=== PATIENT | female | born 1990 | race Caucasian/White ===

== ENCOUNTER 2020-02-01 06:04 | Inpatient (IN) | payer OTHER ==
[2020-02-01] MEDS ORDERED: PENICILLIN 5 MU in NA CHLORIDE 0.9% 100 ML IV ONE (06:56)
[2020-02-01] MEDS ORDERED: METHYLERGONOVINE 0.2MG/ML AMP IM PRN ×2 (06:58→12:48)
[2020-02-01] MEDS ORDERED: CARBOPROST TROME 250 MCG/ML IM PRN ×2 (06:58→12:48)
[2020-02-01] MEDS ORDERED: Ringers Lactate 1,000 ML IV PRN (06:58)
[2020-02-01] MEDS ORDERED: Ringers Lactate 1,000 ML IV SCH (07:00)
[2020-02-01] MEDS ORDERED: OXYTOCIN/LR 20 UNIT/1,000 ML BAG IV SCH ×2 (07:00→13:00)
[2020-02-01] MEDS ORDERED: LIDOCAINE 1% MPF 30 ML VIAL SQ ONE (07:04)
[2020-02-01] MEDS ORDERED: Ringers Lactate 1,000 ML IV ONE (07:30)
[2020-02-01 07:33] LABS: Urine Appearance CLOUDY; Urine Bilirubin NEGATIVE (NEG); Urine Blood 3+ (NEG); Urine Color YELLOW; Urine Glucose NEGATIVE (NEG); Urine Protein NEGATIVE (NEG); Urine Specific Gravity 1.015 (1.005-1.030); Urine Urobilinogen 0.2 mg/dL (0.2-1.0)
[2020-02-01 07:36] LABS: Absolute Lymphocytes (CBC) 2.3 K/uL (0.7-4.9); Basophils % 0.3 % (0-1.3); Lymphocytes % 23.1 % (15.3-44.8); MPV 9.6 fL (7.6-11.3); RBC Red Blood Cell Count 4.09 M/uL (3.86-4.86)
[2020-02-01 07:41] VITALS: BMI 33.3
[2020-02-01 07:58] LABS: Urine Bacteria 20-50 /HPF (<20); Urine Culture Reflex Order REFLEXED
[2020-02-01] MEDS ORDERED: PENICILLIN G POT 5 MU/100 ML IVPB IV SCH (08:00)
[2020-02-01] MEDS ORDERED: ROPIVACAINE HCL 100 ML IV PRN (08:16)
[2020-02-01] MEDS ORDERED: ROPIVACAINE HCL 0.2% 20ML AMP IV ONE (08:19)
[2020-02-01] MEDS ORDERED: FENTANYL CITR 100 MCG/2 ML IV ONE (08:19)
[2020-02-01] MEDS ORDERED: LIDOCAINE 2% MPF 5 ML VIAL ONE (09:24)
[2020-02-01] MEDS ORDERED: PENICILLIN 2.5 MU in NA CHLORIDE 0.9% 100 ML IV SCH (11:00)
[2020-02-01] MEDS ORDERED: BUTORPHANOL 1 MG/ML INJ ONE (11:12)
[2020-02-01] MEDS ORDERED: FENTANYL CITR 100 MCG/2 ML ONE (11:42)
[2020-02-01] MEDS ORDERED: Ringers Lactate 2,000 ML IV ONE (12:33)
[2020-02-01] MEDS ORDERED: ACETAMINOPHEN 500 MG TAB PO PRN (12:48)
[2020-02-01] MEDS ORDERED: ONDANSETRON 4 MG (ODT) TAB PO PRN (12:48)
[2020-02-01] MEDS ORDERED: METHYLERGONOVINE 0.2 MG TAB PO PRN (12:48)
--- NOTE | 2020-02-01 12:51 | P.BOP ---
Preoperative diagnosis: 38+ wk , labor Postoperative diagnosis: Same, delivery viable female infant Primary procedure: SCVD Anesthesia: epidural Complications: Other (CANX1) Transferred to: Other (273) Condition: Good
[2020-02-01] MEDS ORDERED: IBUPROFEN 600 MG TAB PO PRN (14:08)
[2020-02-01 23:18] LABS: RPR (Rapid Plasma Reagin) NON-REACT (NON-REACT)
[2020-02-02] MEDS ORDERED: Tdap (Diph,Pertuss(Acell),Tet Vac) 0.5 ML SYR IMVAC ONE (08:22)
--- NOTE | 2020-02-02 08:42 | DS ---
Final Hospital Discharge Diagnosis: 38+ weeks , delivered. Complications: None. Procedures: Artificial rupture of membranes, prophylaxis with penicillin for beta strep carriage, pl acement of epidural catheter, spontaneous controlled vaginal delivery of viable female . Hospital Course: The patient is a 29-year-old female, 4, para 2-0-1-2 at 38-6/7 we eks gestation, admitted in prodromal labor, who delivered a 6 pounds 3 ounces female with epid ural anesthesia. 8, 9. She was dismissed on the first day, ambulatory, on a select diet with routine post vaginal delivery activity restrictions. Lab work included an admission hemog lobin and hematocrit of 11.7 and 35.0, dismissal of 33.1. She is Rh positive blood type. Rubella im mune. She was dismissed to be seen back in Dr. Conde's office. She is to continue taking any prenat al vitamins she was on with the usual post vaginal delivery activity restrictions. RUBINA/RICHARD Voice ID: [id number] Report ID: [id number]
--- NOTE | 2020-02-02 08:53 | OP ---
Surgeon: Mohan Viramontes MD Ms. Nguyen is a 29-year-old female, 4, para 2-0-1-2 at 38-6/7 weeks gestation, admit claritza in prodromal labor, noted to be 4 cm dilated with bloody show. After prophylaxis initially with penicillin, rupture of membranes was performed. Pitocin augmentation of labor started. Epidural cat heter placed. She had a first stage of labor approximately of 4 hours, second stage of labor of 3 mi nutes. She delivered by spontaneous controlled vaginal delivery of 6 pounds 3 ounces female . After delayed cord clamping, was placed on mother's upper abdomen. Cord blood obtained. Rosa richardson was spontaneously expelled and appeared to be intact. She suffered no perineal lacerations or tears. She was given 1 dose of Stadol 1 mg for pain relief and had an epidural catheter placed. Raymond ntitative blood loss was 155 mL. She did receive 2 doses of penicillin. RUBINA/MARIANAL Voice ID: [id number] Report ID: [id number]
[2020-02-02 12:30] VITALS: BP 121/62; TEMP 98.6
[2020-02-04 12:30] LABS: HBsAG Nonreactive (Nonreactive)
== END 2020-02-02 15:10 | disposition home or self-care (01) | DRG 807 ==
LOC: L&D 06:04 → 2ND-WC 06:47
PROVIDERS: ADMIT Specialist; ATTEND Specialist
PROC: 10E0XZZ Delivery of Products of Conception, External Approach (ICD-10-PCS; principal; 2020-02-02)
PROC: 10907ZC Drainage of Amniotic Fluid, Therapeutic from Products of Conception, Via Natural or Artificial Opening (ICD-10-PCS; 2020-02-02)
DX: O99.824 Streptococcus B carrier state complicating childbirth (principal); Z37.0 Single live birth; O47.1 False labor at or after 37 completed weeks of gestation; Z3A.38 38 weeks gestation of pregnancy; Z23 Encounter for immunization
CPT/HCPCS: 36415; 81001; 85014; 85025; 86592; 86901; 87086; 87088; 87340; 90471; 90715; J0595; J2210; J2590; J2795; J3010; J7120